=== PATIENT | male | born 1945 | race Caucasian/White ===

== ENCOUNTER 2020-04-17 06:28 | Day surgery (SDC) | payer MEDICARE, BC ==
[2020-04-13 11:04] LABS: BASOPHILS % (AUTO) 0.4 % (0-1); EOSINOPHILS # (AUTO) 0.3 X10'3 (0-0.9); EOSINOPHILS % (AUTO) 2.5 % (0-6); LYMPHOCYTES # (AUTO) 1.5 X10'3 (1.1-4.8); LYMPHOCYTES % (AUTO) 14.3 % (21-51); MEAN CORPUSCULAR HEMOGLOBIN 31.1 PG (27.0-31.0); MEAN CORPUSCULAR HGB CONC 32.6 g/dL (33.0-36.5); MEAN CORPUSCULAR VOLUME 95.3 FL (78-98); MEAN PLATELET VOLUME 7.7 FL (7.4-10.4); MONOCYTES # (AUTO) 0.7 X10'3 (0-0.9); MONOCYTES % (AUTO) 7.2 % (2-12); NEUTROPHILS # (AUTO) 7.8 X10'3 (1.8-7.7); NEUTROPHILS % (AUTO) 75.6 % (42-75); PRE OP HEMATOCRIT 44.2 % (42.0-52.0); PRE OP HEMOGLOBIN 14.4 g/dL (14.0-17.9); PRE OP PLATELET COUNT 288 X10'3 (140-440); RED BLOOD COUNT 4.64 X10'6 (4.70-6.10); RED CELL DISTRIBUTION WIDTH 13.5 % (11.5-14.5)
[2020-04-13 11:18] LABS: ALBUMIN 3.5 G/DL (3.4-5.0); ALBUMIN/GLOBULIN RATIO 0.9 (1.1-1.5); ALKALINE PHOSPHATASE 63 IU/L (46-116); BLOOD UREA NITROGEN 19 MG/DL (7-18); BUN/CREATININE RATIO 12.1 (5.4-32.0); CHLORIDE 106 MMOL/L (99-107); CREATININE 1.57 MG/DL (0.60-1.10); PRE OP ALT 23 U/L (30-65); PRE OP ANION GAP 10 (8-16); PRE OP AST 19 U/L (10-37); PRE OP BILIRUB, TOTAL 0.4 MG/DL (0.0-1.0); PRE OP GLUCOSE 153 MG/DL (70-104); PRE OP POTASSIUM 4.2 MMOL/L (3.4-5.1); PRE OP SODIUM 143 MMOL/L (135-145); TOTAL CARBON DIOXIDE 26.6 MMOL/L (24-32); TOTAL PROTEIN 7.6 G/DL (6.4-8.2); eGFR 44 ML/MIN
[~2020-04-17] VITALS: Ht 180.3 cm; Wt 149.7 kg
[~2020-04-17 06:28] MED LIST: ACET-2119 PO; ALBU8.5H8 INH; ASPI-611 PO; ATOR40TA PO; DIPH25CA83 PO; DOCUMENT DATE & TIME OF BETA-BLOCKER PO ONE; ESCI5TAB PO; FURO40TA4 PO; HYDR-3686 PO; INSU100V12 SQ; LISI40TA4 PO; METH500T6 PO; METO-539 PO; NAPR250T4 PO; POTA20TA19 PO; albuterol 2.5 MG/3 ML nebule NEB ONE; ceFAZolin inj. 3,000 MG in normal saline 100ml IV soln 100 ML IV ONE; cefazolin/dext.iso 2gm/50ml 50 ML IV ONE; famotidine 20mg tablet PO ONE; ringers solution, lacted 1,000 ML IV SCH
[2020-04-17] MEDS ORDERED: BUPIVAcaine/PF 2.5mg/ml (0.25%) 10ml vial ONE (06:39)
[2020-04-17 07:30] VITALS: BP 166/81
[2020-04-17] MEDS ORDERED: midazolam 2 mg/2 ml injection ONE (08:22)
[2020-04-17] MEDS ORDERED: fentaNYL/PF 50MCG/1 ML 2ML syringe ONE (08:22)
[2020-04-17] MEDS ORDERED: hydrALAZINE 20mg/ml inj. IV ONE (09:07)
[2020-04-17 09:17] VITALS: BP 127/61
--- NOTE | 2020-04-17 09:17 | NUR ---
Received from OR via [facility], accompanied by Anesthesiologist DINAH and report given by Anesthesiolgist. PATIENT WITH RAGHAVENDRA TO LEFT WRIST THAT IS CDI. PATIENT DENIES PAIN. 10L MASK ON WITH 100% SATURATIONS. Addendum: 04/17/20 at 0935 by Larry Huston RN, RN Amended: Links added.
[2020-04-17 09:27] VITALS: BP 137/56
[2020-04-17 09:37] VITALS: BP 132/60
[2020-04-17 09:47] VITALS: BP 122/65
--- NOTE | 2020-04-17 09:57 | NUR ---
All dc criteria for discharge home has been met. IV taken out without complications. All questions answered regarding dc paperwork. Vss. Significant other present to take patient home. Dressings cdi and vital signs stable. Taken out via wheelchair to personal vehicle where patient taken home by family/friend. Addendum: 04/17/20 at 0958 by Larry Huston RN, RN Amended: Links added.
== END 2020-04-17 09:57 | disposition home or self-care (01) ==
LOC: PAS 06:28
PROVIDERS: ATTEND Orthopaedic Surgery Hand Surgery
DX: M65.322 Trigger finger, left index finger (principal); M65.332 Trigger finger, left middle finger; Z11.59 Encounter for screening for other viral diseases; Z79.899 Other long term (current) drug therapy; Z87.891 Personal history of nicotine dependence; E11.51 Type 2 diabetes mellitus with diabetic peripheral angiopathy without gangrene; E66.01 Morbid (severe) obesity due to excess calories; Z68.42 Body mass index [BMI] 45.0-49.9, adult; M17.0 Bilateral primary osteoarthritis of knee; Z98.890 Other specified postprocedural states
CPT/HCPCS: 26055; 36415; 71046; 80053; 82948; 85025; 93005; J0360; J0690; J2250; J3010; J3490; U0003; A4215; J7120

== ENCOUNTER 2020-06-08 06:24 | Day surgery (SDC) | payer MEDICARE, BC ==
[2020-06-01 15:03] LABS: BASOPHILS # (AUTO) 0.1 X10'3 (0-0.2); BASOPHILS % (AUTO) 0.9 % (0-1); EOSINOPHILS # (AUTO) 0.2 X10'3 (0-0.9); EOSINOPHILS % (AUTO) 2.8 % (0-6); LYMPHOCYTES # (AUTO) 1.8 X10'3 (1.1-4.8); LYMPHOCYTES % (AUTO) 20.5 % (21-51); MEAN CORPUSCULAR HEMOGLOBIN 31.2 PG (27.0-31.0); MEAN CORPUSCULAR HGB CONC 32.7 g/dL (33.0-36.5); MEAN CORPUSCULAR VOLUME 95.3 FL (78-98); MEAN PLATELET VOLUME 7.6 FL (7.4-10.4); MONOCYTES # (AUTO) 0.7 X10'3 (0-0.9); MONOCYTES % (AUTO) 8.2 % (2-12); NEUTROPHILS # (AUTO) 5.9 X10'3 (1.8-7.7); NEUTROPHILS % (AUTO) 67.6 % (42-75); PRE OP HEMATOCRIT 44.2 % (42.0-52.0); PRE OP HEMOGLOBIN 14.5 g/dL (14.0-17.9); PRE OP PLATELET COUNT 239 X10'3 (140-440); RED BLOOD COUNT 4.64 X10'6 (4.70-6.10); RED CELL DISTRIBUTION WIDTH 13.5 % (11.5-14.5)
[2020-06-01 15:18] LABS: ALBUMIN 3.6 G/DL (3.4-5.0); ALBUMIN/GLOBULIN RATIO 0.9 (1.1-1.5); ALKALINE PHOSPHATASE 63 IU/L (46-116); BLOOD UREA NITROGEN 23 MG/DL (7-18); BUN/CREATININE RATIO 13.6 (5.4-32.0); CALCIUM 9.2 MG/DL (8.5-10.1); CHLORIDE 101 MMOL/L (99-107); CREATININE 1.69 MG/DL (0.60-1.10); PRE OP ALT 29 U/L (30-65); PRE OP ANION GAP 11 (8-16); PRE OP AST 17 U/L (10-37); PRE OP BILIRUB, TOTAL 0.4 MG/DL (0.0-1.0); PRE OP GLUCOSE 166 MG/DL (70-104); PRE OP POTASSIUM 4.3 MMOL/L (3.4-5.1); PRE OP SODIUM 138 MMOL/L (135-145); TOTAL CARBON DIOXIDE 26.3 MMOL/L (24-32); TOTAL PROTEIN 7.8 G/DL (6.4-8.2); eGFR 40 ML/MIN
[~2020-06-08] VITALS: Ht 180.3 cm; Wt 146.0 kg
[2020-06-08] VITALS (7 sets, daily range): BP systolic 105–139; BP diastolic 56–69
[~2020-06-08 06:24] MED LIST changes: +INSU100V11; +ceFAZolin 1,000 MG/D5W 50ML IVPB Premixed bag IV ONE; +ceFAZolin 2gm in dextrose, iso 50 ML IV ONE; -ceFAZolin inj. 3,000 MG in normal saline 100ml IV soln 100 ML IV ONE; -cefazolin/dext.iso 2gm/50ml 50 ML IV ONE
[2020-06-08] MEDS ORDERED: LIDOcaine 1% 30ml preserv. free vial ONE (07:22)
[2020-06-08] MEDS ORDERED: insulin regular, human U-100 3ml vial - multi-dose SQ ONE (07:55)
[2020-06-08] MEDS ORDERED: ringers solution, lacted 1,000 ML IV SCH (07:57)
[2020-06-08] MEDS ORDERED: ondansetron/PF 4mg/2ml inj IV PRN (08:00)
[2020-06-08] MEDS ORDERED: morphine 2 MG/ML inj. syringe IV PRN (08:00)
[2020-06-08] MEDS ORDERED: meperidine/PF 25mg/ml syringe IV PRN ×3 (08:00)
[2020-06-08] MEDS ORDERED: proCHLORperazine 10 MG/2 ml inj IV PRN (08:00)
[2020-06-08] MEDS ORDERED: morphine 4 MG/ML inj SYRINge IV PRN (08:00)
[2020-06-08] MEDS ORDERED: fentaNYL/PF 50MCG/1 ML 2ML syringe ONE (08:59)
[2020-06-08] MEDS ORDERED: MIDAZolam 5mg/5ml vial ONE (09:00)
[2020-06-08] MEDS ORDERED: ketorolac trometh. 30mg/ml inj. ONE (09:00)
[2020-06-08] MEDS ORDERED: BUPIVAcaine/PF 2.5mg/ml (0.25%) 10ml vial ONE (09:05)
--- NOTE | 2020-06-08 09:39 | NUR ---
Received from [facility], accompanied by Anesthesiologist DR Worrell and report given by Anesthesiolgist. PATIENT A&OX4, DENIES PAIN, V/S WNL, NEUROVASCULAR CHECKS INTACT, 20G PIV left hand, SCD ON, DRESSING TO RIGHT WRIST CDI ELEVATED WITH ICEBAG APPLIED. LR IVF at 100cc/hr.
--- NOTE | 2020-06-08 09:42 | NUR ---
Accu check 167 no new orders.
--- NOTE | 2020-06-08 10:39 | NUR ---
PATIENT A&OX4, DENIES PAIN, V/S WNL, NEUROVASCULAR CHECKS INTACT, 20G PIV L HAND D/C, SCD OFF, DRESSING TO RIGHT WRIST CDI ELEVATED WITH ICEBAG APPLIED. I HAVE REVIEWED D/C INSTRUCTIONS WITH PATIENT AND UPON ARRIVAL AT VEHICLE AND THEY HAVE VERBALIZED UNDERSTANDING. PATIENT D/C HOME WITH ALL BELONGINGS AND FAMILY GAVE TRANSPORT HOME. PT HAS PAIN MEDS AT HOME
--- NOTE | 2020-06-08 10:39 | NUR ---
Pt attached to his own home O2 at his chronic settings of 2L, sats remain 94%, he states his normal is 91-93%. Ok for discharge per MD on O2 sats.
== END 2020-06-08 10:39 | disposition home or self-care (01) ==
LOC: PAS 06:24
PROVIDERS: ATTEND Orthopaedic Surgery Hand Surgery
DX: M65.321 Trigger finger, right index finger (principal); M65.331 Trigger finger, right middle finger; J44.9 Chronic obstructive pulmonary disease, unspecified; E11.51 Type 2 diabetes mellitus with diabetic peripheral angiopathy without gangrene; M17.0 Bilateral primary osteoarthritis of knee; F32.9 Major depressive disorder, single episode, unspecified; F41.9 Anxiety disorder, unspecified; I10 Essential (primary) hypertension; E66.01 Morbid (severe) obesity due to excess calories; Z68.42 Body mass index [BMI] 45.0-49.9, adult; Z98.890 Other specified postprocedural states; Z87.891 Personal history of nicotine dependence; Z91.013 Allergy to seafood; Z11.59 Encounter for screening for other viral diseases; Z79.899 Other long term (current) drug therapy; Z88.8 Allergy status to other drugs, medicaments and biological substances; Z79.82 Long term (current) use of aspirin
CPT/HCPCS: 26055; 36415; 80053; 82948; 85025; J0690; J1885; J2001; J2250; J3010; J3490; U0003; A4215; J1815; J7120

== ENCOUNTER 2021-11-22 11:25 | Emergency (ER) | payer MEDICARE, BC ==
[~2021-11-22] VITALS: Ht 177.8 cm; Wt 129.0 kg
[~2021-11-22 11:25] MED LIST changes: +ALBU8.5H17 INH; -ALBU8.5H8 INH; -DOCUMENT DATE & TIME OF BETA-BLOCKER PO ONE; +LISI40TA13 PO; -LISI40TA4 PO; +METH-797 PO; -METH500T6 PO; +NAPR-1170 PO; -NAPR250T4 PO; +POTA-207 PO; -POTA20TA19 PO; -albuterol 2.5 MG/3 ML nebule NEB ONE; -ceFAZolin 1,000 MG/D5W 50ML IVPB Premixed bag IV ONE; -ceFAZolin 2gm in dextrose, iso 50 ML IV ONE; -famotidine 20mg tablet PO ONE; -ringers solution, lacted 1,000 ML IV SCH
[2021-11-22 11:40] VITALS: BP 132/52
[2021-11-22] MEDS ORDERED: methylPREDNISolone sod succ 125mg/2ml vial IV ONE (12:05)
[2021-11-22] MEDS ORDERED: albuterol 2.5 MG/3 ML nebule NEB ONE (12:05)
[2021-11-22] MEDS ORDERED: ipratropium/albuterol 3ml nebule NEB ONE (12:05)
[2021-11-22 12:43] LABS: BASOPHILS # (AUTO) 0.1 X10'3 (0-0.2); BASOPHILS % (AUTO) 0.9 % (0-1); EOSINOPHILS # (AUTO) 0.6 X10'3 (0-0.9); EOSINOPHILS % (AUTO) 6.6 % (0-6); HEMATOCRIT 41.7 % (42.0-52.0); HEMOGLOBIN 14.1 g/dl (14.0-17.9); LYMPHOCYTES % (AUTO) 21.6 % (21-51); MEAN CORPUSCULAR HEMOGLOBIN 31.1 PG (27.0-31.0); MEAN CORPUSCULAR HGB CONC 33.7 g/dL (33.0-36.5); MEAN CORPUSCULAR VOLUME 92.3 FL (78-98); MEAN PLATELET VOLUME 7.5 FL (7.4-10.4); MONOCYTES # (AUTO) 0.9 X10'3 (0-0.9); MONOCYTES % (AUTO) 10.1 % (2-12); NEUTROPHILS # (AUTO) 5.5 X10'3 (1.8-7.7); NEUTROPHILS % (AUTO) 60.8 % (42-75); PLATELET COUNT 242 X10'3 (140-440); RED BLOOD COUNT 4.52 X10'6 (4.70-6.10); RED CELL DISTRIBUTION WIDTH 14.1 % (11.5-14.5); WHITE BLOOD COUNT 9.1 X10'3 (4.5-11.0)
[2021-11-22 12:58] LABS: ALANINE AMINOTRANSFERASE 27 U/L (12-78); ALBUMIN 3.5 G/DL (3.4-5.0); ALBUMIN/GLOBULIN RATIO 0.9 (1.1-1.5); ALKALINE PHOSPHATASE 79 IU/L (46-116); ANION GAP 12 (8-16); ASPARTATE AMINO TRANSFERASE 15 U/L (10-37); BILIRUBIN,TOTAL 0.2 MG/DL (0.1-1.0); BLOOD UREA NITROGEN 36 MG/DL (7-18); BUN/CREATININE RATIO 17.8 (5.4-32.0); CHLORIDE 100 MMOL/L (99-107); CREATININE 2.02 MG/DL (0.60-1.10); GLUCOSE 220 MG/DL (70-104); POTASSIUM 3.5 MMOL/L (3.5-5.1); SODIUM 137 MMOL/L (135-145); TOTAL CARBON DIOXIDE 24.7 MMOL/L (24-32); TOTAL PROTEIN 7.4 G/DL (6.4-8.2); eGFR 32 ML/MIN
[2021-11-22] MEDS ORDERED: AZIT-31 PO (14:02)
[2021-11-22] MEDS ORDERED: PRED20TA PO (14:02)
== END 2021-11-22 14:19 | disposition home or self-care (01) ==
LOC: ER 11:27
DX: J44.1 Chronic obstructive pulmonary disease with (acute) exacerbation (principal); Z20.822 Contact with and (suspected) exposure to COVID-19; J44.9 Chronic obstructive pulmonary disease, unspecified; I10 Essential (primary) hypertension; E11.9 Type 2 diabetes mellitus without complications; Z87.891 Personal history of nicotine dependence; Z87.01 Personal history of pneumonia (recurrent); Z79.82 Long term (current) use of aspirin; Z79.4 Long term (current) use of insulin; Z79.899 Other long term (current) drug therapy; Z91.013 Allergy to seafood; Z91.041 Radiographic dye allergy status
CPT/HCPCS: 36415; 71045; 80053; 83880; 84484; 85025; 87635; 93005; 94640; 96374; 99285; C9803; J2930; 94760

== ENCOUNTER 2022-05-20 17:14 | Emergency (ER) | payer MEDICARE, BC ==
[~2022-05-20 17:14] MED LIST changes: +ASPI-1 PO; -ASPI-611 PO; -DIPH25CA83 PO; +FLUT1BLS4; +LISI-644 PO; -LISI40TA13 PO; +NITR0.4T51 SL; +POTA-205 PO; -POTA-207 PO
--- NOTE | 2022-05-20 18:42 | NUR ---
pt left per registration
== END 2022-05-20 23:20 | disposition left against medical advice (07) ==
LOC: ER 17:15
DX: Z00.8 Encounter for other general examination (principal); Z53.21 Procedure and treatment not carried out due to patient leaving prior to being seen by health care provider

== ENCOUNTER 2025-03-14 08:24 | Outpatient (CLI) | payer MEDICARE, BC ==
[~2025-03-14 08:24] MED LIST changes: -LISI-644 PO; +iohexol 350MG/ML 100ml bottle IV ONE
[2025-03-14 09:16] LABS: ALBUMIN 3.4 G/DL (3.4-5.0); ANION GAP 8 (8-16); BLOOD UREA NITROGEN 26 MG/DL (7-18); BUN/CREATININE RATIO 21.1 (10.0-20.0); CALCIUM 9.1 MG/DL (8.5-10.1); CHLORIDE 103 MMOL/L (99-107); CREATININE 1.23 MG/DL (0.60-1.10); GLUCOSE 125 MG/DL (70-104); SODIUM 138 MMOL/L (135-145); TOTAL CARBON DIOXIDE 27.5 MMOL/L (24-32); eGFR 57 ML/MIN
[2025-03-14 09:19] LABS: POTASSIUM 4.4 MMOL/L (3.5-5.1)
== END 2025-03-14 23:59 | disposition home or self-care (01) ==
LOC: RAD 08:24
PROVIDERS: ATTEND Internal Medicine Interventional Cardiology
DX: I65.22 Occlusion and stenosis of left carotid artery (principal); E78.5 Hyperlipidemia, unspecified
CPT/HCPCS: 36415; 80048; Q9967

== ENCOUNTER 2025-03-31 10:21 | Outpatient (CLI) | payer MEDICARE, BC ==
[~2025-03-31 10:21] MED LIST changes: -iohexol 350MG/ML 100ml bottle IV ONE
[2025-03-31] MEDS ORDERED: iohexol 350MG/ML 100ml bottle IV ONE (10:46)
--- NOTE | 2025-03-31 12:24 | RADIOLOGY REPORT ---
CTA neck HISTORY: OCCLUSION AND STENOSIS OF LEFT CAROTID ARTERY TECHNIQUE: Serial axial images were performed to the neck following bolus contrast administration of 100 mL of Omnipaque 350. Multiplanar MIP reconstructed imaging was provided and reviewed at the works tation FINDINGS: On the right there is non calcified plaque in the carotid bulb. There is calcified plaque p resent in the internal carotid artery Without significant narrowing. On the left noncalcified plaque in the carotid bulb. Calcified plaque in the proximal left internal a nd external carotid arteries. There is 90% narrowing of the left internal carotid artery by plaque al star the anterolateral james. Vertebral arteries are patent without occlusion or dissection. IMPRESSION: 1. 90% diameter stenosis of the proximal left internal carotid artery by calcified plaque 2. No significant narrowing of the right internal carotid artery despite the presence of calcified pl aque Computed Tomographic Radiation Dosimetry Report: Total CTDI vol = 20 mGy Total DLP = 796 mGy-cm All CT scans at this medical facility are performed using dose modulation techniques as appropriate t o a performed exam including the following: Automated exposure control was utilized; adjustment of the MA and/or KvP according to patient size; a nd use of iterative reconstruction technique.
== END 2025-03-31 23:59 | disposition home or self-care (01) ==
LOC: RAD 10:21
PROVIDERS: ATTEND Internal Medicine Interventional Cardiology
DX: I65.22 Occlusion and stenosis of left carotid artery (principal)
CPT/HCPCS: 70498; Q9967

== ENCOUNTER 2025-06-02 13:52 | Inpatient (IN) | payer MEDICARE, BC ==
[2025-05-30 11:35] LABS: MEAN PLATELET VOLUME 7.3 FL (7.4-10.4)
[2025-05-30 11:36] LABS: RED CELL DISTRIBUTION WIDTH 13.6 % (11.5-14.5)
[2025-05-30 11:44] LABS: APTT 21 SECONDS (22-32); INR 1.0 INR
[2025-05-30 11:45] LABS: CREATININE 1.28 MG/DL (0.60-1.10); TOTAL CARBON DIOXIDE 27.4 MMOL/L (24-32); eGFR 54 ML/MIN
[2025-05-30 11:46] LABS: CHOL/HDL RATIO 2.8 (0.00-4.99); LDL CHOLESTEROL 64 MG/DL (50-100)
[2025-05-30 12:39] LABS: BANDS% (MANUAL) 1.0 % (0-10); EOSINOPHILS % (MANUAL) 4.0 % (0-6); LYMPHOCYTES % (MANUAL) 22.0 % (21-51); MONOCYTES % (MANUAL) 8.0 % (2-12); NEUTROPHILS % (MANUAL) 65.0 % (42-75); PLATELET ESTIMATE NORMAL
[2025-06-02] VITALS (12 sets, daily range): BP systolic 139–174; BP diastolic 62–77; PULSE 62–76; RESP 11–20; TEMP 97.3–98.4; O2SAT 96–98
[~2025-06-02] VITALS: Ht 177.8 cm; Wt 132.6 kg
--- NOTE | 2025-06-02 14:24 | ELECTROCARDIOGRAPH REPORT ---
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 MASSIMO Jhaveri Measurements Intervals Odum Rate: 75 P: 53 DC: 162 QRS: 22 QRSD: 79 T: 44 QT: 378 QTc: 423 Interpretive Statements Sinus rhythm Baseline wander in lead(s) V5 Electronically Signed On 06-02-2025 16:30:[address] MASSIMO Jhaveri Please click the below link to view image of tracing.
[2025-06-02] MEDS ORDERED: ASPI-1397 PO (14:44)
[2025-06-02] MEDS ORDERED: BUSP15TA12 PO (14:46)
[2025-06-02] MEDS ORDERED: MULT-1085 PO (14:47)
[2025-06-02] MEDS ORDERED: DIPH-735 PO (14:50)
[2025-06-02] MEDS ORDERED: DIPH-423 PO (14:52)
[2025-06-02] MEDS ORDERED: CLOP75TA34 PO (14:53)
[2025-06-02] MEDS ORDERED: PRED10TA23 PO (14:57)
[2025-06-02] MEDS ORDERED: atropine 0.1mg/ml 10ml syringe ONE (16:15)
[2025-06-02] MEDS ORDERED: LIDOcaine 1% 30ml preserv. free vial ONE (16:15)
[2025-06-02] MEDS ORDERED: DOPamine 400mg/D5W 250ml 0 ML IV ONE (16:15)
[2025-06-02] MEDS ORDERED: phenylephrine 10mg/ml inj. ONE (16:15)
[2025-06-02] MEDS ORDERED: heparin 1,000unit/ml 10ml vial 10 ML ONE (16:16)
[2025-06-02] MEDS ORDERED: clopidogrel 300mg tablet ONE (17:49)
--- NOTE | 2025-06-02 17:54 | CARDIAC CATH REPORT ---
Cardiac Cath Report Providers to CC CC: GLADYS GAVIRIA MD Procedure Comments: 1. Aortic arch angiography. 2. Selective left common and nonselective left internal and external carotid artery angiography. 3. Angioplasty/stenting of the left internal carotid artery using embolic protection. 4. Right Femoral Artery Angiography Brief History/Indications: 79yo man with HTN, HLD, DM, high grade left internal carotid artery stenosis and high risk for endarterectomy referred for evaluation. Techniques: After informed consent was obtained, the patient was brought to the lab where she was prepped and draped in the usual sterile fashion. After adequate ane sthesia was obtained using 1% lidocaine to the right groin, 7-Romanian sheath was inserted into the right femoral artery using a modified Seldinger technique. Thereafter, using a pigtail catheter, the catheter was advanced into the ascending aorta and aortic arch angiography performed. Next, using a Javier 2 catheter, the catheter was advanced over the 0.035 wire into the ascending aorta where it was formed. The Javier 2 catheter was then manipulated to engage the left common carotid artery and selective angiography of the left common and nonselective left internal and external carotid artery angiography was performed. Revascularization was then performed as described below. Findings Findings: 1. The patient has a type 1 Aortic arch with mild calcification of the arch and great vessels. 2. The Left common Carotid has mild disease. 3. The Left Internal Carotid artery has an area of 90% stenosis after the ostium PERCUTANEOUS TRANSLUMINAL ANGIOPLASTY/STENTING The Javier 2 catheter was exchanged over a stiff wire for a 90 cm Hosford sheath. Using a 7.2 Emboshield, the embolic protection system was carefully navigated across the lesion into the internal carotid artery. The internal carotid artery was then angioplastied with a 4 x 20 mm balloon. Next, using a 8-8 x 30 Xact stent, the stent was advanced across the lesion where it was deployed. This was then postdilated with a 5 x 20 mm balloon. Followup angiography revealed excellent angiographic results. Results Results: 1. Severe LICA stenosis. 2. Angioplasty/stenting of a 90% left internal carotid artery stenosis with an 8-8 x 30 Xact stent with excellent angiographic results and less than 10% residual stenosis. RECOMMENDATIONS: 1. Cont DAPT x 3 months, then ASA 81mg QD 2. Cont Uptitration of other max-tolerated GDMT KATHY GAVIRIA MD 21, 2025 17:54
[2025-06-02] MEDS ORDERED: albuterol 2.5 MG/3 ML nebule NEB PRN (18:20)
[2025-06-02] MEDS ORDERED: HYDROcodone/acetaminophen 5mg/325mg tablet PO PRN (18:20)
[2025-06-02] MEDS ORDERED: HYDROcodone/acetaminophen 10/325mg tab PO PRN (18:20)
[2025-06-02] MEDS ORDERED: hydrALAZINE 20mg/ml inj. IV PRN (18:25)
[2025-06-02] MEDS ORDERED: MULT-1074 PO (18:32)
[2025-06-02] MEDS: busPIRone 15mg tablet PO SCH (22:05)
[2025-06-02] MEDS: normal saline 1000ml 1,000 ML IV SCH (22:40)
[2025-06-03] VITALS (7 sets, daily range): BP systolic 119–145; BP diastolic 47–69; PULSE 61–72; RESP 11–18; TEMP 98.1–98.5; O2SAT 96–98
[2025-06-03] MEDS: metoprolol succinate 25mg (24-HOUR) SR. Tablet PO SCH (08:03)
[2025-06-03] MEDS: aspirin 81mg, enteric-coated 1 TAB TABLET.DR PO SCH (08:03)
[2025-06-03] MEDS: ESCITALOPRAM 10 mg tablet 10 MG TABLET PO SCH (08:03)
--- NOTE | 2025-06-03 09:35 | DISCHARGE SUMMARY ---
Discharge Summary Providers to CC ~ Discharge Summary Admission Diagnosis: Carotid Hospital Course DATE OF ADMISSION: 06/02/25 DATE OF DISCHARGE: 06/03/25 Discharge Diagnosis\Comment: Severe left internal carotid artery stenosis status post angioplasty/stenting Operations\Procedures: 1. Aortic arch angiography. 2. Selective left common and nonselective left internal and external carotid artery angiography. 3. Angioplasty/stenting of the left internal carotid artery using embolic protection. 4. Right Femoral Artery Angiography Consultants: No consultants Complications: No complications Condition on DC: Stable Continued Medications: Albuterol Sulfate (Proair Hfa) 1 Puff Inh 2 PUFFS INH Q4HPRN PRN for wheezing, INHALER 0 Refills Aspirin (Aspirin EC) 81 Mg Tablet.dr 1 TAB PO DAILY Atorvastatin Calcium* (Lipitor*) 40 Mg Tablet 1 TABLET PO HS, TABLET Buspirone Hcl (Buspirone Hcl) 15 Mg Tablet 1 TAB PO BID Clopidogrel Bisulfate (Clopidogrel) 75 Mg Tablet 1 TAB PO DAILY Diphenhydramine Hcl (Benadryl) 25 Mg Capsule 50 MG PO pre contrast, CAP Escitalopram Oxalate* (Lexapro*) 5 Mg Tablet 20 MG PO DAILY, TAB Hydroxyzine Hcl* (Atarax*) 25 Mg Tablet 1 TAB PO Q8H PRN for for anxiety/agitation, TAB Insulin Detemir (Levemir) 100 Unit/1 Ml Vial 30 UNIT SQ BID, VIAL Insulin Lispro (Humalog) 100 Unit/1 Ml Vial Metoprolol Succinate* (Toprol Xl*) 25 Mg Tab.sr.24h 1 TAB PO DAILY, TAB Multivitamin (Multi-Vitamin Daily) 1 Each Tablet 1 TAB PO DAILY for 30 Days, #30 TAB 0 Refills Prednisone (Prednisone) 10 Mg Tablet 2 TAB PO BID, TAB Discharge Summary: This is a 79-year-old male who has past medical history of type 1 diabetes, hypertension, hyperlipidemia, COPD on home oxygen, chronic kidney disease. He was found to have severe left internal carotid artery stenosis. Presented yesterday for planned carotid angiography with possible stenting. Underwent angioplasty/stenting of a 90% left ICA stenosis with an -8-x30 Xact stent. Plea se see Dr. Anneliese Simmons's dictation for further details on the procedure. Patient tolerated well. He was monitored overnight in the telemetry unit. Has been up and ambulatory. Since the procedure reports decrease in dizziness/lightheadedness. No chest pain or pressure. No shortness a breath. Was asked, but otherwise denies review of systems. Physical exam prior to discharge: General: Awake, alert, oriented. No apparent distress Neck: Supple. Normal range of motion. No JVD Respiratory: Lungs are clear to auscultation bilaterally. No respiratory distress. Chest: Normal shape and size. No accessory muscle use. Cardiovascular: Regular rate and rhythm. S1-S2. No murmur, gallop, rub. Gastrointestinal: Abdomen is soft. Nontender to palpation. Bowel sounds present. Extremities: No lower extremity edema, cyanosis or clubbing. Right femoral cath site with dressing clean dry and intact. No swelling. No hematoma. Minimal ecchymosis. Dorsalis pedis pulses plus two. Neurologic: Alert and oriented x4. Moving all extremities. No unilateral weakness. Normal speech. No neuro deficits appreciated. Psychiatric: Normal mood and affect. Skin: Normal color. Warm and dry. Plan: Patient is being discharged home in stable condition. He will follow up as scheduled. Activity restrictions reviewed. He will continue Plavix and aspirin as prescribed. *Problems/Diagnosis: (1) Carotid artery stenosis (2) COPD (chronic obstructive pulmonary disease) Assessment & Plan: Continue with home oxygen (3) Insulin dependent diabetes mellitus Total Time Spent on D/C: Up to 30 Minutes Counseling Services Smoking & Tobacco Cessation: N/A Supervising MD Co-signing Provider: SHERMAN Johns NP Jun 03, 2025 09:35
== END 2025-06-03 12:33 | disposition home or self-care (01) | DRG 36 ==
LOC: SSTAY O 13:52 → PCU 3S 20:01
PROVIDERS: ADMIT Student in an Organized Health Care Education/Training Program; ATTEND Student in an Organized Health Care Education/Training Program
PROC: 037L3DZ Dilation of Left Internal Carotid Artery with Intraluminal Device, Percutaneous Approach (ICD-10-PCS; principal; 2025-06-02)
PROC: B41F1ZZ Fluoroscopy of Right Lower Extremity Arteries using Low Osmolar Contrast (ICD-10-PCS; 2025-06-02)
PROC: B4101ZZ Fluoroscopy of Abdominal Aorta using Low Osmolar Contrast (ICD-10-PCS; 2025-06-02)
PROC: B3141ZZ Fluoroscopy of Left Common Carotid Artery using Low Osmolar Contrast (ICD-10-PCS; 2025-06-02)
PROC: B3171ZZ Fluoroscopy of Left Internal Carotid Artery using Low Osmolar Contrast (ICD-10-PCS; 2025-06-02)
PROC: B31B1ZZ Fluoroscopy of Left External Carotid Artery using Low Osmolar Contrast (ICD-10-PCS; 2025-06-02)
DX: I65.22 Occlusion and stenosis of left carotid artery (principal); E78.5 Hyperlipidemia, unspecified; E10.9 Type 1 diabetes mellitus without complications; J44.9 Chronic obstructive pulmonary disease, unspecified; Z79.899 Other long term (current) drug therapy; Z99.81 Dependence on supplemental oxygen; I12.9 Hypertensive chronic kidney disease with stage 1 through stage 4 chronic kidney disease, or unspecified chronic kidney disease; E10.22 Type 1 diabetes mellitus with diabetic chronic kidney disease; N18.9 Chronic kidney disease, unspecified
CPT/HCPCS: 36415; 37215; 80048; 80061; 82948; 83695; 85007; 85025; 85610; 85730; 93005; 94760; A4615; A6258; C1725; C1760; C1769; C1876; C1884; C1887; C1894; G0378; J0461; J1265; J1644; J2003; J2371; J7030; Q9967